=== PATIENT | male | born 1945 | race Caucasian/White ===

== ENCOUNTER 2016-12-30 11:05 | Emergency (ER) | payer MEDICARE, OTHER ==
[~2016-12-30] VITALS: Ht 182.9 cm; Wt 93.0 kg
[~2016-12-30 11:05] MED LIST: ALLO100T PO; ALPR0.25 PO; ASPI1TAB7 PO; CYMB60CA PO; DUONI NEB; FURO20 PO; GABA300 PO; KETO2SHA5 TOP; LANTUS2P SQ; LOSA50 PO; METF500 PO; METHO500 PO; METO25 PO; OMEP20CA5 PO; POTA10TA2 PO; STOO100C PO; TRAM50TA PO
[2016-12-30 11:07] VITALS: BP 121/70; PULSE 67; RESP 18; TEMP 98; O2SAT 98
[2016-12-30] MEDS ORDERED: DEXI60CA PO (11:30)
[2016-12-30] MEDS ORDERED: RANI150T PO (11:30)
[2016-12-30] MEDS ORDERED: VITA1000 PO (11:30)
[2016-12-30] MEDS ORDERED: METF500T PO (11:30)
[2016-12-30] MEDS ORDERED: LACTTAB8 PO (11:30)
[2016-12-30] MEDS ORDERED: ASPI81CH CHEW (11:30)
[2016-12-30] MEDS ORDERED: LOSA50TA PO (11:30)
[2016-12-30] MEDS ORDERED: FURO20TA PO (11:30)
[2016-12-30] MEDS ORDERED: OMEP20TA PO (11:30)
[2016-12-30] MEDS ORDERED: PLAV75TA29 PO (11:30)
[2016-12-30] MEDS ORDERED: DULO1CAP3 PO (11:30)
[2016-12-30] MEDS ORDERED: METO25TA3 PO (11:30)
[2016-12-30] MEDS ORDERED: GABA600T PO (11:30)
[2016-12-30 11:32] VITALS: O2SAT 100
[2016-12-30 11:34] LABS: AUTOMATED NEUTROPHIL # 5.9 TH/MM3 (1.8-7.7); BASOPHIL # 0.1 TH/MM3 (0-0.2); BASOPHIL % 1.1 % (0.0-2.0); EOSINOPHIL # 0.2 TH/MM3 (0-0.4); EOSINOPHIL % 2.3 % (0.0-4.0); HEMATOCRIT 41.9 % (39.0-51.0); HEMO FLAGS DIFF FINAL; LYMPH % 15.3 % (9.0-44.0); LYMPHOCYTE # 1.2 TH/MM3 (1.0-4.8); MEAN CELL VOLUME 84.6 FL (80.0-100.0); MEAN CORPUSCULAR HGB CONC 33.1 % (32.0-36.0); MONO % 6.1 % (0.0-8.0); NEUT % 75.2 % (16.0-70.0); PLATELET COUNT 339 TH/MM3 (150-450); RED BLOOD COUNT 4.95 MIL/MM3 (4.50-5.90); RED CELL DISTRIBUTION WIDTH 14.2 % (11.6-17.2); WHITE BLOOD COUNT 7.8 TH/MM3 (4.0-11.0)
[2016-12-30 11:43] LABS: PROTHROMBIN TIME - PATIENT 11.5 SEC (9.8-11.6)
[2016-12-30 11:46] LABS: ALT (GPT) 63 U/L (12-78); ANION GAP 8 MEQ/L (5-15); AST (GOT) 41 U/L (15-37); BICARBONATE 29.9 MEQ/L (21.0-32.0); BLOOD UREA NITROGEN 17 MG/DL (7-18); CHLORIDE 99 MEQ/L (98-107); GLOMERULAR FILTRATION RATE 64 ML/MIN (>89); POTASSIUM 3.9 MEQ/L (3.5-5.1); SODIUM (NA) 137 MEQ/L (136-145)
[2016-12-30 11:47] VITALS: BP 124/74; PULSE 68; RESP 20; O2SAT 98
[2016-12-30 11:55] LABS: ALKALINE PHOSPHATASE 86 U/L (45-117); TOTAL BILIRUBIN ADULT 0.5 MG/DL (0.2-1.0)
[2016-12-30 12:14] LABS: CREATINE KINASE 82 U/L (39-308)
--- NOTE | 2016-12-30 12:18 | RADRPT ---
EXAM DATE/TIME: 12/30/2016 11:43 [facility] COMPARISON: CHEST SINGLE AP, September 22, 2015, 10:08. INDICATIONS : Patient has had chest pain for a week. MEDICAL HISTORY : Cardiovascular disease. Hypertension. Diabetes mellitus type 2. SURGICAL HISTORY : Coronary artery stent. Pacemaker. ENCOUNTER: Initial ACUITY: 1 day PAIN SCORE: 10/10 LOCATION: Bilateral chest FINDINGS: A pacemaker is implanted on the left. The heart is enlarged. The pulmonary vascularity is normal. There is no evidence of consolidation, pleural effusion or pneumothorax. CONCLUSION: Compensated cardiomegaly. Otherwise, negative. Martín Salas MD FACR on December 30, 2016 at 12:05 Board Certified Radiologist. This report was verified electronically.
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
[2016-12-30 13:39] VITALS: BP 137/65; PULSE 62; RESP 20; O2SAT 98
--- NOTE | 2016-12-31 15:02 | EKG ---
Date Performed: 12/30/2016 Time Performed: 09:07:40 PTAGE: 71 years EKG: ATRIAL SENSED VENTRICULAR PACED RHYTHM ABNORMAL RHYTHM ECG PREVIOUS TRACING : 09/22/2015 09.42 Compared to previous tracing, the patient is now paced. DOCTOR: Jyothi Iqbal Interpretating Date/Time 12/31/2016 15:00:24
== END 2016-12-30 14:19 | disposition home or self-care (01) ==
LOC: NEPA 11:05
DX: R07.89 Other chest pain (principal); R94.31 Abnormal electrocardiogram [ECG] [EKG]; R07.1 Chest pain on breathing; B19.20 Unspecified viral hepatitis C without hepatic coma; I10 Essential (primary) hypertension; E11.9 Type 2 diabetes mellitus without complications; I25.10 Atherosclerotic heart disease of native coronary artery without angina pectoris; E78.00 Pure hypercholesterolemia, unspecified; I25.2 Old myocardial infarction; K21.9 Gastro-esophageal reflux disease without esophagitis; F17.210 Nicotine dependence, cigarettes, uncomplicated; Z95.5 Presence of coronary angioplasty implant and graft; Z95.0 Presence of cardiac pacemaker
CPT/HCPCS: 71010; 80053; 82550; 83880; 84443; 84484; 85025; 85610; 85730; 93005; 99285